=== PATIENT | male | born 2000 | race African-American/Black ===

== ENCOUNTER 2023-10-06 18:30 | Emergency (ER) | payer OTHER ==
[2023-10-06 18:51] VITALS: RESP 20; TEMP 97.3
--- NOTE | 2023-10-06 19:15 | ED ---
General Adult HPI - General Chief complaint: Extremity Injury, Lower Stated complaint: L big toe injury Time Seen by Provider: 10/06/23 19:13 Source: patient, RN notes reviewed Mode of arrival: ambulatory Limitations: no limitations - History of Present Illness Initial comments: 23-year-old male presents emergency Department with chief complaint of left toe injury. He states that he was playing on his basketball game when he kicked another player's shoe. He states that he noticed pain in his left big toe but continued to complain. He states that he took his shoe off and noticed deformity to his toe. Denies numbness, tingling. - Related Data Allergies Allergy/AdvReac Type Severity Reaction Status Date / Time No Known Allergies Allergy Verified 10/06/23 18:36 Review of Systems ROS Statement: Those systems with pertinent positive or pertinent negative responses have been documented in the HPI. ROS Other: All systems not noted in ROS Statement are negative. Past Medical History Past Medical History: No Reported History History of Any Multi-Drug Resistant Organisms: None Reported Past Surgical History: No Surgical Hx Reported Past Psychological History: No Psychological Hx Reported Smoking Status: Never smoker Past Alcohol Use History: None Reported Past Drug Use History: None Reported General Exam Limitations: no limitations General appearance: alert, in no apparent distress Head exam: Present: atraumatic, normocephalic, normal inspection Eye exam: Present: normal appearance Extremities exam: Present: normal inspection, normal capillary refill, other (DP and PT pulses 2+, deformity to left 1st toe). Absent: tenderness, pedal edema, joint swelling, calf tenderness Psychiatric exam: Present: normal affect, normal mood Skin exam: Present: warm, dry, intact, normal color. Absent: rash Course Vital Signs 10/06/23 10/06/23 18:33 21:16 Temperature 97.3 F L Pulse Rate 69 65 Respiratory 20 20 Rate Blood Pressure 129/79 143/98 O2 Sat by Pulse 100 99 Oximetry Procedures - Nerve Block Consent Obtained: verbal consent Local Anesthetic Used: Lidocaine 1% Side: left Nerve Blocks: digital Procedure Successful: Yes Patient Tolerated Procedure: well, no complications Medical Decision Making - Medical Decision Making Was pt. sent in by a medical professional or institution (, PA, TRAM DRIVER, urgent care, hospital, or snf...) When possible be specific @ -No Did you speak to anyone other than the patient for history (EMS, parent, family, police, friend...)? What history was obtained from this source @ -No Did you review nursing and triage notes (agree or disagree)? Why? @ -I reviewed and agree with nursing and triage notes Were old charts reviewed (outside hosp., previous admission, EMS record, old EKG, old radiological studies, urgent care reports/EKG's, snf records)? Report findings @ -No old charts were reviewed Differential Diagnosis (chest pain, altered mental status, abdominal pain women, abdominal pain men, vaginal bleeding, weakness, fever, dyspnea, syncope, headache, dizziness, GI bleed, back pain, seizure, CVA, palpatations, mental health, musculoskeletal)? @ -Differential Musculoskeletal Muscular strain, contusion, ligament sprain, fracture, arthritis, septic arthritis, bursitis, cellulitis, muscle spasm, nerve compression, DVT, arterial occlusion, herpes zoster, electrolyte abnormality, tumor.... This is not meant to be in all inclusive list EKG interpreted by me (3pts min.). @ -none X-rays interpreted by me (1pt min.). @ -X-ray left foot shows injury displaced distal phalanx of the left first digit Postreduction x-ray shows chip fracture at the lateral base of the first toe distal phalanx CT interpreted by me (1pt min.). @ -None done U/S interpreted by me (1pt. min.). @ -None done What testing was considered but not performed or refused? (CT, X-rays, U/S, labs)? Why? @ -None What meds were considered but not given or refused? Why? @ -None Did you discuss the management of the patient with other professionals (professionals i.e. , PA, TRAM DRIVER, lab, RT, psych nurse, social scientist, health science specialist, teacher, chief credit officer, rehabilitation case coordinator)? Give summary @ -No Was smoking cessation discussed for >3mins.? @ -No Was critical care preformed (if so, how long)? @ -No Were there social determinants of health that impacted care today? How? (Homelessness, low income, unemployed, alcoholism, drug addiction, transportation, low edu. Level, literacy, decrease access to med. care, shelter, rehab)? @ -No Was there de-escalation of care discussed even if they declined (Discuss DNR or withdrawal of care, Hospice)? DNR status @ -No What co-morbidities impacted this encounter? (DM, HTN, Smoking, COPD, CAD, Cancer, CVA, ARF, Chemo, Hep., AIDS, mental health diagnosis, sleep apnea, morbid obesity)? @ -None Was patient admitted / discharged? Hospital course, mention meds given and route, prescriptions, significant lab abnormalities, going to OR and other pertinent info. @ -Discharged. Patient presented to the emergency department chief complaint of toe injury. Initial x-ray shows injury displaced distal phalanx of the left first digit. Digital block was performed and the toe was reduced. Postreduction x-ray shows a chip fracture at the lateral base of the first toe distal phalanx. Patient was advised to follow up with PCP for return back to sports. Patient understands and agreeable with plan. Patient stable at time of discharge. Case discussed with Dr. [place] Undiagnosed new problem with uncertain prognosis? @ -No Drug Therapy requiring intensive monitoring for toxicity (Heparin, Nitro, Insulin, Cardizem)? @ -No Were any procedures done? @ -No Diagnosis/symptom? @ -Left 1st toe dislocation, fracture Acute, or Chronic, or Acute on Chronic? @ -acute Uncomplicated (without systemic symptoms) or Complicated (systemic symptoms)? @ -uncomplicated Side effects of treatment? @ -No Exacerbation, Progression, or Severe Exacerbation? @ -No Poses a threat to life or bodily function? How? (Chest pain, [place], [place], pneumonia, PE, COPD, DKA, ARF, appy, cholecystitis, CVA, Diverticulitis, Homicidal, Suicidal, threat to staff... and all critical care pts) @ -No Disposition Clinical Impression: Toe dislocation, Toe fracture Disposition: HOME SELF-CARE Condition: Stable Instructions (If sedation given, give patient instructions): Toe Fracture (ED) Additional Instructions: Please follow up with your primary care provider. Return to the emergency department for new or worsening symptoms. Is patient prescribed a controlled substance at d/c from ED?: No Referrals: None,Stated [Primary Care Provider] - 1-2 days
[2023-10-06] MEDS ORDERED: LIDOCAINE 1% INJ 10MG/ML (20 ML MDV) SQ ONE (19:27)
[2023-10-06] MEDS ORDERED: KETOROLAC 15 MG/ML 1 ML VIAL IM STA (19:51)
[2023-10-06] MEDS ORDERED: ACETAMINOPHEN TAB 500 MG TAB PO STA (19:51)
--- NOTE | 2023-10-06 20:28 | XR ---
EXAMINATION TYPE: XR foot complete LT DATE OF EXAM: 10/06/2023 6:57 PM CLINICAL INDICATION:Male, 23 years old with history of toe injury; [facility] COMPARISON: None TECHNIQUE: The left foot was examined in the AP, oblique, and lateral projections. 2 views left grea t toe. FINDINGS: Small ossific density consistent with chip fracture at the lateral base of the great toe distal phala nx, with mild displacement. No evidence of dislocation or additional fractures or dislocations throug hout the foot. Joint spaces appear maintained. Mild chronic degenerative changes suggested at the ank le, not well evaluated. Mild soft tissue swelling suggested in the great toe. Soft tissues are otherwise normal without evide nce of radiopaque foreign body. IMPRESSION: Left foot/great toe: Acute chip fracture at the lateral base of the great toe distal phalanx.
--- NOTE | 2023-10-06 20:29 | XR ---
EXAMINATION TYPE: XR toes LT DATE OF EXAM: 10/06/2023 8:19 PM CLINICAL INDICATION:Male, 23 years old with history of post reduction; [facility] COMPARISON: None TECHNIQUE: The left foot was examined in the AP, oblique, and lateral projections. 2 views left grea t toe. FINDINGS: Small ossific density consistent with chip fracture at the lateral base of the great toe distal phala nx, with mild displacement. No evidence of dislocation or additional fractures or dislocations throug hout the foot. Joint spaces appear maintained. Mild chronic degenerative changes suggested at the ank le, not well evaluated. Mild soft tissue swelling suggested in the great toe. Soft tissues are otherwise normal without evide nce of radiopaque foreign body. IMPRESSION: Left foot/great toe: Acute chip fracture at the lateral base of the great toe distal phalanx.
[2023-10-06 21:35] VITALS: BP 143/98; PULSE 65
== END 2023-10-06 23:45 | disposition home or self-care (01) ==
LOC: EC 18:30
DX: S92.422A Displaced fracture of distal phalanx of left great toe, initial encounter for closed fracture (principal); W50.1XXA Accidental kick by another person, initial encounter; Y93.67 Activity, basketball
CPT/HCPCS: 73630; 73660; 64450; 99284; 96372; J2001; J1885